=== PATIENT | male | born 1965 | race Caucasian/White ===

== ENCOUNTER 2018-09-06 08:57 | Emergency (ER) | payer BC ==
[2018-09-06] MEDS: AZITHROMYCIN 500MG/NS (PMX) 250 ML IVPB (10:00)
[2018-09-06] MEDS: IPRATROPIUM (NEB) 0.5 MG/2.5 ML AMP INH (10:17)
[2018-09-06] MEDS: ALBUTEROL 0.5% (NEB) 2.5 MG/0.5 ML AMP INH (10:17)
[2018-09-06 10:22] LABS: ADD MAN DIFF? NO
[2018-09-06 10:28] LABS: BASOPHIL # 0.1 10^3/ul (0.0-0.1); BASOPHILS % 0.7 % (0.0-2.0); EOSINOPHILS # 0.3 10^3/ul (0.0-0.5); EOSINOPHILS % 3.9 % (0.0-7.0); HEMATOCRIT 44.6 % (42.0-52.0); HEMOGLOBIN 15.3 g/dl (14.0-18.0); LYMPHOCYTES # 2.1 10^3/ul (0.8-2.9); LYMPHOCYTES % 30.3 % (15.0-51.0); MEAN CORPUSCULAR HEMOGLOBIN 30.9 pg (29.0-33.0); MEAN CORPUSCULAR HGB CONC 34.3 g/dl (32.0-37.0); MEAN CORPUSCULAR VOLUME 90.1 fl (82.0-101.0); MEAN PLATELET VOLUME 9.6 fl (7.4-10.4); MONOCYTE # 0.6 10^3/ul (0.3-0.9); MONOCYTES % 8.4 % (0.0-11.0); NEUTROPHIL # 3.8 10^3/ul (1.6-7.5); PLATELET COUNT 209 10^3/UL (140-415); RED BLOOD COUNT 4.95 10^6/ul (4.70-6.10); RED CELL DISTRIBUTION WIDTH 11.9 % (11.5-14.5)
[2018-09-06 10:28] LABS: WHITE BLOOD COUNT 6.9 10^3/ul (4.8-10.8)
[2018-09-06] MEDS: METHYLPREDNISOLONE 125 MG INJ IV (10:28)
[2018-09-06] MEDS: CEFTRIAXONE 1 GM/50 ML (PMX) 50 ML IVPB (10:29)
[2018-09-06 10:47] LABS: INR 0.88; PT RATIO 0.9
[2018-09-06 10:48] LABS: ALANINE AMINOTRANSFERASE 35 IU/L (13-69); ALBUMIN 4.3 g/dl (3.3-4.9); ALBUMIN/GLOBULIN RATIO 1.72; ALKALINE PHOSPHATASE 65 IU/L (42-121); ANION GAP 10 (5-13); ASPARTATE AMINO TRANSFERASE 27 IU/L (15-46); BILIRUBIN,INDIRECT 0.2 mg/dl (0-1.1); BILIRUBIN,TOTAL 0.2 mg/dl (0.2-1.3); BLOOD UREA NITROGEN 18 mg/dl (7-20); CALCIUM 9.2 mg/dl (8.4-10.2); CARBON DIOXIDE 25 mmol/L (21-31); CHLORIDE 107 mmol/L (97-110); CREATININE 1.16 mg/dl (0.61-1.24); Estimated GFR > 60 mL/min (>60); GLUCOSE 139 mg/dl (70-220); LIPASE 131 U/L (23-300); PARTIAL THROMBOPLASTIN TIME 27.2 Sec (23.0-35.0); POTASSIUM 3.9 mmol/L (3.5-5.1); SODIUM 142 mmol/L (135-144); TOTAL PROTEIN 6.8 g/dl (6.1-8.1)
[2018-09-06 10:51] LABS: ETHANOL < 10.0 mg/dl
[2018-09-06 10:53] LABS: LACTIC ACID 1.9 mmol/L (0.5-2.0)
[2018-09-06 11:00] LABS: TROPONIN-I < 0.012 ng/ml (0.000-0.120)
[2018-09-06 11:09] LABS: B-TYPE NATRIURETIC PEPTIDE 24 PG/ML (0-125)
[2018-09-06 11:34] LABS: ADD UMIC NO; UR AMORPHOUS CRYSTAL FEW /HPF (NONE SEEN); UR ASCORBIC ACID NEGATIVE (NEGATIVE); UR BACTERIA FEW /HPF (NONE SEEN); UR BILIRUBIN (Dip) NEGATIVE (NEGATIVE); UR BLOOD (Dip) NEGATIVE (NEGATIVE); UR CLARITY SLIGHTLY CLOUDY (CLEAR); UR COLOR YELLOW (YELLOW); UR GLUCOSE (Dip) NEGATIVE (NEGATIVE); UR KETONES (Dip) NEGATIVE (NEGATIVE); UR LEUKOCYTE ESTERASE (Dip) NEGATIVE Leu/ul (NEGATIVE); UR NITRITE (Dip) NEGATIVE (NEGATIVE); UR RBC 1 /HPF (0-5); UR SPECIFIC GRAVITY (Dip) 1.015 (1.003-1.030); UR TOTAL PROTEIN (Dip) NEGATIVE (NEGATIVE); UR UROBILINOGEN (Dip) NEGATIVE (NEGATIVE); UR WBC 2 /HPF (0-5)
[2018-09-06 11:54] LABS: AMPHETAMINE/METHAMPHETAMINE Negative (NEGATIVE); BARBITURATES Negative (NEGATIVE); BENZODIAZEPINES Negative (NEGATIVE); CANNABINOIDS Positive (NEGATIVE); COCAINE Negative (NEGATIVE); OPIATES Negative (NEGATIVE)
== END 2018-09-06 14:13 | disposition home or self-care (01) ==
LOC: E/R 08:57
DX: J44.1 Chronic obstructive pulmonary disease with (acute) exacerbation (principal); N43.3 Hydrocele, unspecified; L29.0 Pruritus ani; F17.210 Nicotine dependence, cigarettes, uncomplicated; J45.901 Unspecified asthma with (acute) exacerbation; R10.9 Unspecified abdominal pain
CPT/HCPCS: 36415; 71045; 76870; 80053; 80307; 81001; 81003; 83605; 83690; 83880; 84484; 85025; 85610; 85730; 87040; 87400; 93005; 94644; 96374; 96375; 99285-25